=== PATIENT | male | born 1960 | race African-American/Black ===

== ENCOUNTER 2016-12-25 04:40 | Inpatient (IN) ==
[2016-12-11 09:36] LABS: Basophils % 0.3 % (0.0-0.8); Eosinophils # 0.1 10*3/uL (0.0-0.87); Eosinophils % 2.9 % (0.00-10.9); Hematocrit 40.1 VOL% (42.0-52.0); Hemoglobin 13.4 GM/DL (14.0-18.0); Immature Granulocytes % 0.3 %; Immature Granulocytes Absolute 0.01 #; Lymphocytes # 1.4 10*3/uL (1.4-4.0); Lymphocytes % 36.8 % (21.2-54.2); Mean Corpuscular HGB Conc 33.4 GM/DL (32-36); Mean Corpuscular Hemoglobin 27 PG (27-34); Mean Corpuscular Volume 81.8 FL (87-102); Mean Platelet Volume 10.6 FL (9.6-12.0); Monocytes # 0.5 10*3/uL (0.11-0.8); Neutrophils # 1.8 10*3/uL (1.4-7.4); Neutrophils % 46.7 % (38.7-73.9); Platelet Count 149 T/CUMM (130-400); Red Cell Distribution Width 12.8 % (9.3-17.3); White Blood Count 3.8 T/CUMM (4-12)
--- NOTE | 2016-12-11 09:40 | EKG Report ---
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
[2016-12-11 09:42] LABS: Apearance,Urine CLEAR (Clear); Bilirubin,Urine Negative (Negative); Blood, Urine Negative (Negative); Glucose,Urine (UA) Negative (Negative); Ketones,Urine Negative (Negative); Nitrite,Urine Negative (Negative); Protein,Urine Negative; RBC,Urine <1 /HPF (0-4); Squamous Epithelial Cell,Urine Occasional /HPF (0-10); Urine Color Yellow (Yellow); Urine Specific Gravity 1.016 (1.001-1.035); Urine Urobilinogen < 2.0 EU/DL (0.2-1.0)
[2016-12-11 09:45] LABS: PT Patient Result 10.7 SECS; Partial Thromboplastin Time 27.2 SECS (0-40)
--- NOTE | 2016-12-11 09:53 | XRay Report ---
Exam: XR chest 2V Date: 12/11/2016 9:00 AM Indication: Respiratory preop evaluation of the chest. Comparison: None Technical: PA lateral Findings: Mild cardiac prominence. Degenerative change present thoracic spine. No obvious infiltrate or effusion. Mediastinum structures are otherwise intact no pneumothorax. Impression: 1. No acute cardiothoracic pathology 2. Degenerative spondylosis change thoracic spine PROCEDURE INTERPRETED AT [facility] DEPARTMENT OF RADIOLOGY Final Report Signed by: Dr. Estevan Roque
[2016-12-11 10:14] LABS: Alanine Aminotransferase 32 U/L (16-61); Alkaline Phosphatase 50 U/L (45-117); Aspartate Amino Transferase 21 U/L (0-37); Bilirubin,Total < 0.39 MG/DL (0.2-1.0); Blood Urea Nitrogen 17 MG/DL (7-18); Calcium 9.2 MG/DL (8.5-10.1); Glucose 172 MG/DL (74-106); Osmolality,Calculated 278.8 MOS/KG (273-304); Potassium 4.5 MMOL/L (3.5-5.1); Sodium 137 MMOL/L (136-145); Total Protein 7.9 G/DL (6.4-8.3)
[2016-12-25] MEDS ORDERED: LORazepam 1 MG TABLET PO ONE (05:00)
[2016-12-25] MEDS ORDERED: SODIUM CHLORIDE 0.9% 100 ML IV ONE (05:37)
[2016-12-25] MEDS ORDERED: ceFAZolin 1,000 MG VIAL ONE (05:37)
[2016-12-25] MEDS ORDERED: VANCOMYCIN 1,000 MG VIAL ONE (05:37)
[2016-12-25] MEDS ORDERED: VANCOMYCIN INJ 1,000 MG in SODIUM CHLORIDE 0.9% 250 ML IV ONE (06:00)
[2016-12-25] MEDS ORDERED: FAMOTIDINE 20 MG TABLET PO ONE (06:00)
--- NOTE | 2016-12-25 06:40 | History and Physical Update ---
History and Physical Update - History and Physical H&P was reviewed, the patient examined and there: are no changes in the patients condition since last H&P was completed.
[2016-12-25] MEDS ORDERED: LORazepam 1 MG TABLET ONE (07:03)
[2016-12-25] MEDS ORDERED: FAMOTIDINE 20 MG TABLET ONE (07:03)
[2016-12-25] MEDS ORDERED: TRANEXAMIC ACID 1,000 MG/10 ML VIAL IV ONE (07:24)
[2016-12-25] MEDS ORDERED: LACTATED RINGERS 1,000 ML IV SCH (07:30)
[2016-12-25] MEDS ORDERED: BACITRACIN OINT 0.9 GM PACK TOP ONE (09:41)
--- NOTE | 2016-12-25 10:35 | Operative Note ---
Date of procedure: 12/25/16 Procedure: DIAGNOSIS: Bilateral knee primary osteoarthrosis PROCEDURE: Right total knee arthroplasty (cpt #90400) SURGEON: Ramon ANESTHESIA: Spinal with a postoperative adductor canal block PROCEDURE and FINDINGS: After adequate was induced, the patient's knee was prepped and draped in the usual sterile fashion. The limb was exsanguinated with Esmarch. Tourniquet was inflated to 300 mmHg. A median parapatellar approach was made. Femur was cut using an intramedullary guide and a 4 in 1 cutting jig in 5 degrees of valgus. ACL and menisci were excised. Tibia was cut using intramedullary guide. Patella was cut using freehand technique. Components were trialed. Tibial fin was prepared. Components are cemented in place using Palacos cement and modern cementing techniques. Cement was removed. A 1/8 inch Hemovac drain was placed. The knee was well-balanced and full range of motion with central tracking patella. Deep layers closed with 0-0 Vicryl. Superficial layers were closed with 2-0 and 3-0 Vicryl. Skin was approximated with ahsan. Bacitracin and a sterile dressing was applied. Patient was transferred to recovery. A postoperative adductor canal block is anticipated. COMPONENTS: The Quinten Persona system was used. 12 CR femur, G natural tibia, 10 mm liner, 38 mm patella TOURNIQUET TIME: 50 minutes Surgeon / Physician: Librado Navarro Jr. Results - Labs CBC & BMP: 12/11/16 09:29 12/11/16 09:29 Discharge Plan - Discharge Medications No Action HYDROmorphone TAB [Dilaudid Tab] 1 tablet PO DAILY - Follow Up or Referral - Forms/Instructions
[2016-12-25] MEDS ORDERED: ZALEPLON 5 MG CAPSULE PO PRN (10:36)
[2016-12-25] MEDS ORDERED: ONDANSETRON 4 MG/2 ML VIAL IV PRN (10:36)
[2016-12-25] MEDS ORDERED: oxyCODONE IR 5 MG TABLET PO PRN (10:36)
[2016-12-25] MEDS ORDERED: MAGNESIUM HYDROXIDE SUSP 30 ML UDCUP PO PRN (10:36)
[2016-12-25] MEDS ORDERED: MORPHINE 2 MG/1 ML SYRINGE IV PRN (10:36)
[2016-12-25] MEDS ORDERED: diphenhydrAMINE CAP 25 MG CAPSULE PO PRN (10:36)
[2016-12-25] MEDS ORDERED: ROPIVACAINE 0.5% 30 ML VIAL ONE (10:41)
--- NOTE | 2016-12-25 10:49 | Anesthesia Post-Op ---
Anesthesia Post OP - Post Ansesthetic Evaluation Patient seen in post op: Yes Resp: within normal limits CV: within normal limits Mental: within normal limits Temp: within normal limits [id number]: within normal limits Nausea and Vomiting: within normal limits Pain: within normal limits
[2016-12-25] MEDS ORDERED: HYDROmorphone 2 MG/1 ML VIAL ONE (10:53)
[2016-12-25] MEDS ORDERED: fentaNYL 100 MCG/2 ML VIAL ONE (10:53)
[2016-12-25] MEDS ORDERED: ACETAMINOPHEN 1,000 MG/100 ML VIAL IV ONE (10:54)
[2016-12-25] MEDS ORDERED: KETOROLAC 60 MG/2 ML VIAL IM ONE (10:54)
[2016-12-25] MEDS ORDERED: LABETALOL 100 MG/20 ML VIAL IV ONE (10:54)
[2016-12-25] MEDS ORDERED: ONDANSETRON 4 MG/2 ML VIAL ONE (10:54)
[2016-12-25] MEDS ORDERED: MIDAZOLAM 2 MG/2 ML VIAL ONE (10:54)
[2016-12-25] MEDS: KETOROLAC 30 MG/1 ML VIAL IV SCH ×3 (11:00→22:19)
--- NOTE | 2016-12-25 12:45 | XRay Report ---
XR knee 2V RT Clinical Information: Postop Joint replacement (right knee) Comparison: None Findings: Right total aortoplasty hardware is noted in place. Overlying soft tissue drain and ahsan are noted. Impression: Postsurgical changes without evidence of acute complication. PROCEDURE INTERPRETED AT [facility] DEPARTMENT OF RADIOLOGY Final Report Signed by: Hakan Burns
[2016-12-25] MEDS: LACTATED RINGERS 1,000 ML IV SCH ×3 (12:51→22:23)
[2016-12-25] MEDS ORDERED: SEVOFLURANE 1 UNIT/15 MINUTE INH ONE (14:08)
[2016-12-25] MEDS ORDERED: PROPOFOL 500 MG/50 ML BOTTLE IV ONE (14:14)
[2016-12-25] MEDS: ceFAZolin 2,000 MG in PREMIX 1 EACH IV SCH ×2 (15:01→21:41)
[2016-12-25] MEDS: ACETAMINOPHEN 500 MG TABLET PO SCH ×2 (17:00→22:20)
[2016-12-25] MEDS: DOCUSATE SODIUM 100 MG CAPSULE PO SCH (21:39)
[2016-12-26 05:04] LABS: Basophils % 0.2 % (0.0-0.8); Eosinophils # 0.1 10*3/uL (0.0-0.87); Eosinophils % 1.7 % (0.00-10.9); Hematocrit 37.2 VOL% (42.0-52.0); Hemoglobin 12.2 GM/DL (14.0-18.0); Immature Granulocytes % 0.3 %; Immature Granulocytes Absolute 0.02 #; Lymphocytes # 1.3 10*3/uL (1.4-4.0); Lymphocytes % 21.9 % (21.2-54.2); Mean Corpuscular HGB Conc 32.8 GM/DL (32-36); Mean Corpuscular Hemoglobin 27 PG (27-34); Mean Corpuscular Volume 81.8 FL (87-102); Mean Platelet Volume 10.6 FL (9.6-12.0); Monocytes # 0.6 10*3/uL (0.11-0.8); Monocytes % 9.7 % (1.7-12.7); Neutrophils # 3.8 10*3/uL (1.4-7.4); Neutrophils % 66.2 % (38.7-73.9); Platelet Count 144 T/CUMM (130-400); Red Blood Count 4.55 MC/CUMM (3.8-5.5); Red Cell Distribution Width 12.9 % (9.3-17.3); White Blood Count 5.8 T/CUMM (4-12)
[2016-12-26] MEDS: ACETAMINOPHEN 500 MG TABLET PO SCH ×2 (05:11→10:58)
[2016-12-26] MEDS: FONDAPARINUX 2.5 MG/0.5 ML SYRINGE SUBCUT SCH (05:11)
[2016-12-26] MEDS: KETOROLAC 30 MG/1 ML VIAL IV SCH (05:16)
[2016-12-26 05:33] LABS: Calcium 8.1 MG/DL (8.5-10.1); Osmolality,Calculated 281.4 MOS/KG (273-304); Potassium 4.1 MMOL/L (3.5-5.1)
[2016-12-26] MEDS ORDERED: DEXTROSE 50% 25 GM/50 ML VIAL IV PRN (07:25)
[2016-12-26] MEDS ORDERED: GLUCAGON 1 MG VIAL IM PRN (07:25)
--- NOTE | 2016-12-26 08:24 | Orthopedic Progress Note ---
Orthopedics - Subjective Interval history: Mr. Dean is relatively uncomfortable. He denies any previous history of diabetes. He is complaining of some retention last night and increased frequency. Dressing is clean, dry and intact. Right foot is neurovascularly unchanged. His sugars have been running high. Hemoglobin A1c was obtained and is 9.0. Impression: Urinary retention possible BPH. Hyperglycemia. Postop day 1 status post right total knee replacement Plan: Consult urology for urinary retention. Consult hospitalist service for diabetes evaluation and management. Exam - Constitutional Vitals: Period Temp Pulse Resp BP Sys/Haro Pulse Ox Last 24 Hr 96.9 F-99.8 F 52-88 14-20 119-159/63-103 94-100 Results - Labs CBC & BMP: 12/26/16 04:20 12/26/16 04:20
[2016-12-26] MEDS: INSULIN LISPRO 100 UNIT/ML SUBCUT SCH ×4 (08:59→22:01)
[2016-12-26] MEDS: DOCUSATE SODIUM 100 MG CAPSULE PO SCH ×2 (08:59→22:01)
--- NOTE | 2016-12-26 10:14 | Hospitalist Consult Note ---
Assessment and Plan (1) Diabetes Status: Acute Assessment and plan: Plan is to initiate Accu-Cheks before meals at bedtime. Sliding scale insulin. Consult diabetes management for education for patient. Consult case management to assist patient with a PCP for follow-up Current Visit: Yes History of Present Illness - Data of Consult Consult date: 12/26/16 - Consult Narrative Reason for consult: diabetes management History of present illness: Mr. Dean is a 56 year old black male with a history of osteoarthritis and no other known history that underwent total right knee replacement on 12/25 after several failed nonoperative interventions. Patient tolerated the surgery well but was noted to have elevated blood sugars and A1c of 9. Hospitalist service was consulted to evaluate the patient for management of diabetes. Patient was seen and examined with family present at the bedside. Patient admitted to an unhealthy diet. Denied any recent weight loss, weight gain, polyuria, polydipisia, and polyphagia. Patient does have a brother that has diabetes but no other relatives he is aware of. We will initiate Accu-Cheks before meals at bedtime, sliding scale insulin, diabetic diet. We will consult diabetes educators to educate patient about diseae process. Patient lacks a PCP and we will consult case management to assist patient with set up of this. Thank you for this consult. We will continue to follow. CC: Librado Navarro Jr., - Home Medications and Allergies Home Medications: Home Medications Medication Instructions Recorded Confirmed Type HYDROmorphone TAB [Dilaudid Tab] 2 mg PO DAILY PRN 12/11/16 12/25/16 History Allergies/Adverse Reactions: Allergies Allergy/AdvReac Type Severity Reaction Status Date / Time codeine Allergy Mild Nausea Verified 12/11/16 09:00 Medical,Surgical,& Family Hx - Medical History Neurology: No history of: Seizures HEENT: History of: Dental Problems (UPPER PARTIAL) Respiratory: No history of: Respiratory Problems (FLU VAC-YES; PNEU VAC- ?) Renal: History of: Renal Problems (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.) Genitourinary: History of: Kidney Stones (DR HERNANDEZ.) - Surgical History Thoracic Surgeries: Surgical HX of;: Lithotripsy Orthopedic Surgeries: Surgical HX of;: Total Knee Replacement (right 12/25/16) - Family History Family History: Reports;: Family Cancer (BROTHER), Family Diabetes ([place]), Family Heart Disease (FATHER [place]), Family Hypertension ([place]INGS), Family Stroke (BROTHERS) - Social History Smoking Status: Never smoker Frequency of Alcohol Use: None Type of Drug Use: None Functional capacity: independent ambulation - Constitutional Constitutional: Absent: chills, fever(s) - EENT Eyes: Absent: loss of vision Nose, mouth and throat: Absent: dysphagia, headache(s) - Cardiovascular Cardiovascular: Absent: chest pain at rest, dyspnea on exertion, edema - Respiratory Respiratory: Absent: cough - Gastrointestinal Gastrointestinal: Absent: abdominal pain, nausea, vomiting - Genitourinary Genitourinary: Absent: difficulty urinating, hematuria - Musculoskeletal Musculoskeletal: Present: limited range of motion - Neurological Neurological: Absent: confusion - Psychiatric Psychiatric: Absent: anxiety, depression Exam - Constitutional Vitals: Period Temp Pulse Resp BP Sys/Haro Pulse Ox Last 24 Hr 96.9 F-99.8 F 52-88 14-20 119-159/63-103 94-100 General appearance: no acute distress - Head Head exam: Present: normal inspection, normocephalic - Eye Eye exam: Present: EOMI. Absent: scleral icterus Pupils: Present: [place] - ENT ENT exam: Present: normal exam - Respiratory Respiratory exam: Present: clear to auscultation bilaterally. Absent: wheezes - Cardiovascular Cardiovascular exam: Present: regular rate and rhythm - GI/Abdominal GI/Abdominal exam: Present: normal bowel sounds, soft. Absent: tenderness - Extremities Exam Extremities exam: Present: normal capillary refill. Absent: full ROM, calf tenderness, edema - Neurological Exam Neurological exam: Present: alert, oriented X3 - Psychiatric Psychiatric exam: Present: normal affect, normal mood - Skin Skin exam: Present: normal color, warm, dry Results - Labs CBC & BMP: 12/26/16 04:20 12/26/16 04:20 Lab Results: I have reviewed the past 24 hour labs
[2016-12-26] MEDS: CELECOXIB 200 MG CAPSULE PO SCH (10:58)
--- NOTE | 2016-12-26 11:24 | Pathology Report from [facility] ---
[facility] ACCESSION # : [id number] PATIENT NAME : Julien Dean ORDERING DR : KRISTIN BECERRA MD CLINICAL HX: Osteoarthritis RT knee POST-OP DX: Same SPECIMEN INFO: RT knee bone & tissue GROSS DESCRIPTION: Received in formalin labeled RT SANIYA KNEE BONE & TISSUE is an aggregate of bone, soft tissue and cartilage measuring 14.5 x 8.0 cm. The articular surfaces are focally degenerative with areas of subchondral eburnation seen. Certified Green Building Engineer sections are submitted in one cassette. DIAGNOSIS FOR JULIEN DEAN: RIGHT KNEE BONE & TISSUE, TOTAL REPLACEMENT: Osteoarthritis. COLLECTED DATE: 12/25/2016 [facility] REPORT DATE: 12/26/2016 ELECTRONICALLY SIGNED BY: Tera Ryan M.D. 12/26/2016 - 10:06:37 [facility]OSPITALRosangela
--- NOTE | 2016-12-26 13:17 | Urology Consultation ---
History of Present Illness - Data of Consult Patient: new to practice Consult date: 12/26/16 Requesting Physician: Librado Navarro Jr. - Consult Narrative Reason for consult: Urinary retention History of present illness: Mr. Dean is a 56 year old male who has seen Dr. Boyle in the past. He has BPH with lower urinary tract symptoms. He gets up 3-4 times a night every night. Develop urinary retention. Flomax has been started. I recommend it be doubled and a prescription was written. He will follow up with Dr. Boyle. CC: Librado Navarro Jr., - Home Medications and Allergies Home Medications: Home Medications Medication Instructions Recorded Confirmed Type HYDROmorphone TAB [Dilaudid Tab] 2 mg PO DAILY PRN 12/11/16 12/25/16 History Allergies/Adverse Reactions: Allergies Allergy/AdvReac Type Severity Reaction Status Date / Time codeine Allergy Mild Nausea Verified 12/11/16 09:00 Exam - Constitutional Vitals: Period Temp Pulse Resp BP Sys/Haro Pulse Ox Last 24 Hr 96.9 F-99.8 F 58-88 16-20 137-159/75-96 94-99 Results - Labs CBC & BMP: 12/26/16 04:20 12/26/16 04:20
[2016-12-26] MEDS: MORPHINE 2 MG/1 ML SYRINGE IV PRN (15:28)
[2016-12-26] MEDS: oxyCODONE IR 5 MG TABLET PO PRN ×2 (17:30→21:59)
[2016-12-27] MEDS: MORPHINE 2 MG/1 ML SYRINGE IV PRN ×2 (01:02→05:12)
[2016-12-27] MEDS: FONDAPARINUX 2.5 MG/0.5 ML SYRINGE SUBCUT SCH (04:23)
[2016-12-27] MEDS: LACTATED RINGERS 1,000 ML IV SCH (06:32)
[2016-12-27 07:01] LABS: Basophils % 0.3 % (0.0-0.8); Eosinophils # 0.3 10*3/uL (0.0-0.87); Eosinophils % 3.7 % (0.00-10.9); Hematocrit 39.4 VOL% (42.0-52.0); Hemoglobin 12.8 GM/DL (14.0-18.0); Immature Granulocytes % 0.4 %; Immature Granulocytes Absolute 0.03 #; Lymphocytes # 1.3 10*3/uL (1.4-4.0); Lymphocytes % 18.2 % (21.2-54.2); Mean Corpuscular HGB Conc 32.5 GM/DL (32-36); Mean Corpuscular Hemoglobin 27 PG (27-34); Mean Corpuscular Volume 82.4 FL (87-102); Monocytes # 0.8 10*3/uL (0.11-0.8); Monocytes % 11.1 % (1.7-12.7); Neutrophils # 4.7 10*3/uL (1.4-7.4); Neutrophils % 66.3 % (38.7-73.9); Platelet Count 148 T/CUMM (130-400); Red Blood Count 4.78 MC/CUMM (3.8-5.5); Red Cell Distribution Width 12.9 % (9.3-17.3); White Blood Count 7.1 T/CUMM (4-12)
[2016-12-27] MEDS ORDERED: HYDROmorphone 2 MG/1 ML VIAL IV PRN (07:48)
--- NOTE | 2016-12-27 07:53 | Orthopedic Progress Note ---
Orthopedics - Subjective Interval history: Mr. Dean is complaining of pain to his right knee. He is also still having problems with urinary retention and frequency. He has been started on Flomax. The hospitalist service is seeing him and has made recommendations for his diabetes. Exam shows that his dressing is clean, dry and intact. His right lower extremities neurovascularly unchanged. Plan: I am going to switch up his pain medicines. He is to receive milk of magnesia. Obtain a bladder scan this morning. Continue physical therapy. Exam - Constitutional Vitals: Period Temp Pulse Resp BP Sys/Haor Pulse Ox Last 24 Hr 97.9 F-98.8 F 68-79 18-20 141-162/79-98 97-100 Results - Labs CBC & BMP: 12/27/16 05:40 12/26/16 04:20 Specialty Discharge - Follow Up or Referrals Follow up with: Edmund Boyle MD [Physician] - 2 Weeks (call thursday to make a [address] Boyle)
[2016-12-27] MEDS: CELECOXIB 200 MG CAPSULE PO SCH (08:30)
[2016-12-27] MEDS: DOCUSATE SODIUM 100 MG CAPSULE PO SCH ×2 (08:31→20:32)
[2016-12-27] MEDS: INSULIN LISPRO 100 UNIT/ML SUBCUT SCH ×4 (08:32→21:12)
--- NOTE | 2016-12-27 10:25 | Hospitalist Progress Note ---
Assessment and Plan (1) Diabetes Status: Acute Assessment and plan: Plan is to initiate Accu-Cheks before meals at bedtime. Sliding scale insulin. Consult diabetes management for education for patient. Consult case management to assist patient with a PCP for follow-up Current Visit: Yes Hospitalist: Subjective Interval history: Pt seen and examined this morning with family present at bedside. Pt. is alert and oriented. States he is still in some pain but it is improving some. No other complaints noted at this time. Pt. has had some issues with urinary retention. 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 Urology is following. Pt. reported that he received diabetic education yesterday. Blood sugars are noted to be in the 160-180s range. We will continue to follow. Exam - Constitutional Vitals: Period Temp Pulse Resp BP Sys/Haro Pulse Ox Last 24 Hr 96.0 F-98.8 F 68-79 18-20 141-162/79-98 97-100 General appearance: normal weight, no acute distress - Head Head exam: Present: normal inspection, normocephalic - Eye Eye exam: Present: EOMI. Absent: scleral icterus Pupils: Present: [place] - Respiratory Respiratory exam: Present: clear to auscultation bilaterally. Absent: wheezes - Cardiovascular Cardiovascular exam: Present: regular rate and rhythm - GI/Abdominal GI/Abdominal exam: Present: normal bowel sounds, soft. Absent: tenderness - Extremities Exam Extremities exam: Present: normal capillary refill, other (right knee dressing) . Absent: full ROM, edema - Neurological Exam Neurological exam: Present: alert, oriented X3 - Psychiatric Psychiatric exam: Present: normal affect, normal mood - Skin Skin exam: Present: normal color, warm, dry Results - Labs CBC & BMP: 12/27/16 05:40 12/26/16 04:20 Lab Results: I have reviewed the past 24 hour labs Specialty Discharge - Follow Up or Referrals Follow up with: Edmund Boyle MD [Physician] - 2 Weeks (call thursday to make a [address] Boyle)
[2016-12-27] MEDS: HYDROmorphone 2 MG/1 ML VIAL IV PRN ×3 (10:50→20:32)
[2016-12-27] MEDS: TAMSULOSIN 0.4 MG CAPSULE PO SCH (20:32)
[2016-12-28] MEDS: HYDROmorphone 2 MG/1 ML VIAL IV PRN ×6 (00:01→22:02)
[2016-12-28 05:14] LABS: Eosinophils # 0.3 10*3/uL (0.0-0.87); Eosinophils % 4.2 % (0.00-10.9); Hematocrit 38.6 VOL% (42.0-52.0); Hemoglobin 12.5 GM/DL (14.0-18.0); Immature Granulocytes % 0.5 %; Immature Granulocytes Absolute 0.03 #; Lymphocytes # 1.2 10*3/uL (1.4-4.0); Mean Corpuscular HGB Conc 32.4 GM/DL (32-36); Mean Corpuscular Hemoglobin 27 PG (27-34); Mean Corpuscular Volume 82.5 FL (87-102); Mean Platelet Volume 10.5 FL (9.6-12.0); Monocytes # 0.8 10*3/uL (0.11-0.8); Monocytes % 13.2 % (1.7-12.7); Neutrophils # 3.6 10*3/uL (1.4-7.4); Neutrophils % 61.1 % (38.7-73.9); Platelet Count 145 T/CUMM (130-400); Red Blood Count 4.68 MC/CUMM (3.8-5.5); Red Cell Distribution Width 12.8 % (9.3-17.3); White Blood Count 5.9 T/CUMM (4-12)
[2016-12-28] MEDS: FONDAPARINUX 2.5 MG/0.5 ML SYRINGE SUBCUT SCH (06:07)
[2016-12-28] MEDS: CELECOXIB 200 MG CAPSULE PO SCH (08:39)
[2016-12-28] MEDS: DOCUSATE SODIUM 100 MG CAPSULE PO SCH ×2 (08:39→21:35)
[2016-12-28] MEDS: INSULIN LISPRO 100 UNIT/ML SUBCUT SCH ×4 (08:39→22:12)
[2016-12-28] MEDS: TAMSULOSIN 0.4 MG CAPSULE PO SCH ×2 (08:39→21:35)
--- NOTE | 2016-12-28 11:44 | Orthopedic Progress Note ---
Orthopedics - Subjective Interval history: Julien Dean is feeling better. He is progressing slowly because of the left arthritic knee is hampering him. He has been started on I&O caths and has had high residuals. Dressing dry. NV ok. Continue current plan. Exam - Constitutional Vitals: Period Temp Pulse Resp BP Sys/Haro Pulse Ox Last 24 Hr 96.9 F-98.3 F 69-76 16-18 131-161/77-98 96-97 Results - Labs CBC & BMP: 12/28/16 04:50 12/26/16 04:20 Specialty Discharge - Follow Up or Referrals Follow up with: Edmund Boyle MD [Physician] - 2 Weeks (call thursday morning to make a [address] Boyle)
[2016-12-28] MEDS: metFORMIN 850 MG TABLET PO SCH (16:41)
--- NOTE | 2016-12-28 17:49 | Hospitalist Progress Note ---
Hospitalist: Subjective Interval history: Patient is awake and comfortable Exam - Constitutional Vitals: Period Temp Pulse Resp BP Sys/Haro Pulse Ox Last 24 Hr 96.9 F-98.3 F 69-76 16-18 131-153/75-85 96-97 Exam: General: No Acute Distress HEENT: Normocephalic, atraumatic, Extra ocular movements intact Neck: Supple, No JVD Chest: Clear to auscultation B/L CV: S1 + S2 audible without murmur, gallop or rub Abd: soft, NT, Non-distended, BS + Ext: No edema Skin: No purpura, bruising or rash Rheumatologic: No Joint deformities Neurologic: Strengtg 5/5 all extremities, no gross sensory deficits Results - Labs CBC & BMP: 12/28/16 04:50 12/26/16 04:20 - Impressions eneral appearance: normal weight, no acute distress - Head Head exam: Present: normal inspection, normocephalic - Eye Eye exam: Present: EOMI. Absent: scleral icterus Pupils: Present: [place] - Respiratory Respiratory exam: Present: clear to auscultation bilaterally. Absent: wheezes - Cardiovascular Cardiovascular exam: Present: regular rate and rhythm - GI/Abdominal GI/Abdominal exam: Present: normal bowel sounds, soft. Absent: tenderness - Extremities Exam Extremities exam: Present: normal capillary refill, other (right knee dressing) . Absent: full ROM, edema - Neurological Exam Neurological exam: Present: alert, oriented X3 - Psychiatric Psychiatric exam: Present: normal affect, normal mood - Skin Skin exam: Present: normal color, warm, dry Specialty Discharge - Follow Up or Referrals Follow up with: Edmund Boyle MD [Physician] - 2 Weeks (call thursday morning to make a [address] Boyle)
[2016-12-29] MEDS: HYDROmorphone 2 MG/1 ML VIAL IV PRN ×2 (03:03→06:38)
[2016-12-29] MEDS: FONDAPARINUX 2.5 MG/0.5 ML SYRINGE SUBCUT SCH (05:44)
--- NOTE | 2016-12-29 08:01 | Orthopedic Progress Note ---
Orthopedics - Subjective Interval history: Mr. Dean is more comfortable today. He is relying on the IV pain medicine. His urinary residuals are down to the 200 300 range. Right lower extremities neurovascular change. Dressings clean, dry and intact. Plan: Continue with physical therapy. He was encouraged for him to get out in the [place]. I am going to convert him to oral Dilaudid. Stop the hydrocodone and oxycodone. Exam - Constitutional Vitals: Period Temp Pulse Resp BP Sys/Haro Pulse Ox Last 24 Hr 96.5 F-98.4 F 72-92 16-20 121-151/67-83 95-98 Results - Labs CBC & BMP: 12/28/16 04:50 12/26/16 04:20 Specialty Discharge - Follow Up or Referrals Follow up with: Edmund Boyle MD [Physician] - 2 Weeks (call thursday morning to make a [address] Boyle)
[2016-12-29] MEDS: TAMSULOSIN 0.4 MG CAPSULE PO SCH (08:06)
[2016-12-29] MEDS: metFORMIN 850 MG TABLET PO SCH (08:06)
[2016-12-29] MEDS: DOCUSATE SODIUM 100 MG CAPSULE PO SCH (08:07)
[2016-12-29] MEDS: CELECOXIB 200 MG CAPSULE PO SCH (08:07)
[2016-12-29] MEDS: HYDROmorphone 2 MG TABLET PO PRN ×2 (08:08→12:05)
[2016-12-29] MEDS: INSULIN LISPRO 100 UNIT/ML SUBCUT SCH ×2 (08:10→12:07)
[2016-12-29 11:39] VITALS: BP 136/76
[2016-12-29 11:44] LABS: Osmolality,Calculated 274.2 MOS/KG (273-304); Potassium 4.3 MMOL/L (3.5-5.1)
--- NOTE | 2016-12-29 12:54 | Discharge Summary ---
Hospital Course - Hospital Course Hospital Course: Julien Dean was admitted after undergoing an uncomplicated right total knee arthroplasty. He received perioperative DVT and antimicrobial prophylaxis. It was noted that during his hospitalization that he had elevated sugars. Hemoglobin A1c was obtained and was 9. A hospitalist service was consulted to help manage diagnose and manage diabetes mellitus. He was initially started on sliding scale and was placed on metformin. Patient was also noted to have urinary retention secondary to BPH. He was started on in and out caths and Flomax. Dr. Tino Cardozo recommend that he have a follow-up appointment with Dr. Boyle in 2 weeks time. Mr. Dean was slow to progress with physical therapy. He was severely hampered by his arthritic left knee. Specialty Discharge - Follow Up or Referrals Follow up with: Librado Navarro Jr., MD [Physician] - 01/27/17 12:40 pm (4 weeks) Garrett Mcclure MD [Physician] - 01/29/17 9:15 am Edmund Boyle MD [Physician] - 01/09/17 10:30 am () Discharge Plan - Discharge Data Disposition: Disch/Xfer to Snf Condition at Discharge: Stable Discharge Diet: diabetic diet Hygiene: may shower Weight Bearing at Discharge: weight bear as tolerated Driving: not until seen by doctor - Discharge Medications New Docusate Sodium Cap [Colace Cap] 100 mg PO BID capsule Fondaparinux [Arixtra] 2.5 mg SUBCUT Q24H 7 Days Insulin Lispro [HumaLOG] See Protocol SUBCUT ACHS unit metFORMIN [Glucophage] 850 mg PO BID W/MEALS tablet Celecoxib [Celebrex] 200 mg PO DAILY capsule HYDROmorphone TAB [Dilaudid Tab] 2 mg PO Q4H PRN tablet PRN Reason: Pain Severe (8-10) Tamsulosin [Flomax] 0.4 mg PO BID capsule Discontinued HYDROmorphone TAB [Dilaudid Tab] 2 mg PO DAILY PRN PRN Reason: Pain - Follow Up or Referral Follow Up: Librado Navarro Jr., MD [Physician] - 01/27/17 12:40 pm (4 weeks) Garrett Mcclure MD [Physician] - 01/29/17 9:15 am Edmund Boyle MD [Physician] - 01/09/17 10:30 am () - Forms/Instructions Instructions: Total Knee Replacement (DC), Diabetes Mellitus Type 2 in Adults ( DC) Additional Discharge Instructions: Daily dry dressing changes. Weightbearing as tolerated. CPM while at swing bed. Arrange walker and bedside commode for home use. Wear LA hose for 1 month. In and out catheterize every 6-8 hours. Discontinue ahsan and Steri-Strip wound on January 05, 2017. Follow-up appointment in 4 weeks. Prescription for Dilaudid 2 mg 20 tablets was written. Stop Arixtra after 7 doses. Exam - Constitutional Vitals: Period Temp Pulse Resp BP Sys/Haro Pulse Ox Last 24 Hr 96.5 F-98.4 F 70-92 16-20 121-151/67-76 95-98 Discharge Results Labs on day of discharge: Labs from last 24 hours 12/29/16 12/29/16 12/29/16 11:04 10:36 07:18 Sodium 134 L Potassium 4.3 Chloride 98 Carbon Dioxide 30 Anion Gap 10.3 BUN 14 Creatinine 0.90 GFR Calculation 159 BUN/Creatinine Ratio 15.00 Glucose 199 H POC Glucose 195 H 216 H Calculated Osmolality 274.2 Calcium 9.0 12/28/16 12/28/16 21:26 16:04 Sodium Potassium Chloride Carbon Dioxide Anion Gap BUN Creatinine GFR Calculation BUN/Creatinine Ratio Glucose POC Glucose 201 H 168 H Calculated Osmolality Calcium DS: Provider Date of admission: 12/25/16 04:40 Primary care physician: . No PCP Attending physician on admission: Librado Navarro Jr., Consults: 12/25/16 10:36 Consult to Case Mgmt/Social Srvs [CONS] Routine Reason for Case Mgmt/Social Srvs: Rehab Home Health Equipment Consult Comment: Bedside Commode, CPM, Walker Consult to Occupational Therapy [CONS] Routine Reason for Occupational Therapy: Evaluate and Treat Consult Comment: ADL's Consult to Physical Therapy [CONS] Routine Reason for Physical Therapy: Evaluate and Treat Gait Training Start Therapy: Today 12/26/16 07:26 Consult to Physician [CONS] Routine Comment: hyperglycemia Consulting Provider: Consulting Provider Notified: Yes When should Consulting Provider be notified: Now Consult to Specialist Group: Hospitalist Person Notified: deangelo quintanilla Date Notified: 12/26/16 Time Notified: 08:37 12/26/16 08:24 Consult to Physician [CONS] Routine Comment: Urinary retention Consulting Provider: Tino Cardozo Consulting Provider Notified: Yes When should Consulting Provider be notified: Now Person Notified: vance called Date Notified: 12/26/16 Time Notified: 08:48 12/26/16 10:42 Consult to [facility], Educator [CONS] Routine Reason for Vice President Financial: Diabetes Education Discharging clinician: Librado Navarro Jr., Expected date of discharge: 12/29/16
== END 2016-12-29 15:15 | DRG 470 ==
LOC: N.SDSINP 04:40 → N.3E 11:57
PROVIDERS: ADMIT Orthopaedic Surgery; ATTEND Orthopaedic Surgery